=== PATIENT | female | born 1975 | race Caucasian/White ===

== ENCOUNTER → 2019-02-11 | Outpatient (CLI) | payer OTHER ==
[~2019-02-11] MED LIST: CETI10TA22 PO
[2019-02-11 13:18] LABS: BASO # 0.1 x10^3/uL (0.0-0.2); BASO % 1 % (0-3); EOS # 0.2 x10^3/uL (0.0-0.7); EOS % 3 % (0-3); HEMATOCRIT 43.9 % (36.0-47.0); HEMOGLOBIN 14.4 g/dL (12.0-15.5); LYMPH % 27 % (24-48); MEAN CORPUSCULAR HEMOGLOBIN 29 pg (25-35); MEAN CORPUSCULAR HGB CONC 33 g/dL (31-37); MEAN CORPUSCULAR VOLUME 89 fL (79-100); MONO # 0.5 x10^3/uL (0.0-1.1); MONO % 7 % (0-9); NEUT # 4.4 x10^3/uL (1.8-7.7); NEUT % 62 % (31-73); PLATELET COUNT 261 x10^3/uL (140-400); RED BLOOD COUNT 4.93 x10^6/uL (3.50-5.40); RED CELL DISTRIBUTION WIDTH 13.2 % (11.5-14.5); WHITE BLOOD COUNT 7.1 x10^3/uL (4.0-11.0)
[2019-02-11 13:19] LABS: BILIRUBIN,URINE NEGATIVE (NEG); CLARITY,URINE CLEAR; COLOR,URINE YELLOW; NITRITE,URINE NEGATIVE (NEG); PROTEIN,URINE NEGATIVE (NEG-TRACE); UROBILINOGEN,URINE 0.2 mg/dL (0.2 mg/dL)
[2019-02-11 13:23] LABS: RBC,URINE 0 /HPF (0-2); SQUAMOUS EPITHELIAL CELL,UR OCC /LPF; WBC,URINE 0 /HPF (0-4)
[2019-02-11 13:24] LABS: BACTERIA,URINE 0 /HPF (0-FEW)
[2019-02-11 13:34] LABS: ALBUMIN 4.6 g/dL (3.4-5.0); ALBUMIN/GLOBULIN RATIO 1.3 (1.0-1.7); CALCIUM 9.9 mg/dL (8.5-10.1); CREATININE 0.7 mg/dL (0.6-1.0); GFR 90.5; POTASSIUM 4.4 mmol/L (3.5-5.1); TOTAL BILIRUBIN 0.4 mg/dL (0.2-1.0); TOTAL PROTEIN 8.1 g/dL (6.4-8.2)
[2019-02-16 20:50] VITALS: BP 131/87
== END | disposition home or self-care (01) ==
LOC: SURGPAT 12:43
PROVIDERS: ATTEND Obstetrics & Gynecology
DX: Z01.818 Encounter for other preprocedural examination (principal); Z88.8 Allergy status to other drugs, medicaments and biological substances
CPT/HCPCS: 36415; 80053; 81001; 85025

== ENCOUNTER 2019-02-16 05:34 | Observation (INO) | payer OTHER ==
[~2019-02-16] VITALS: Ht 170.2 cm; Wt 116.6 kg
[2019-02-16] VITALS (13 sets, daily range): BP systolic 91–135; BP diastolic 69–97
[2019-02-16] MEDS ORDERED: BUPIVACAINE-EPI 0.25%-1:200000 MPF 30 ML VIAL. INJ ONE (06:30)
[2019-02-16] MEDS ORDERED: PROCHLORPERAZINE 10 MG/2 ML VIAL. IV PRN (07:00)
[2019-02-16] MEDS ORDERED: LIDOCAINE 1% PF 2 ML VIAL. ID PRN (07:00)
[2019-02-16] MEDS ORDERED: ONDANSETRON PF 4 MG/2 ML VIAL. IV PRN ×2 (07:00→10:00)
[2019-02-16] MEDS ORDERED: fentaNYL PF VIAL 100 MCG/2 ML VIAL IV PRN (07:00)
[2019-02-16] MEDS ORDERED: IV RINGERS,LACTATED 1000ML 1,000 ML IV SCH (07:00)
[2019-02-16] MEDS ORDERED: ESTROGENS, CONJ VAGINAL CREAM 30GM TUBE. ONE (07:06)
[2019-02-16] MEDS ORDERED: INDIGOTINDISULFONATE SODIUM 40 MG/5 ML AMPUL. ONE (07:06)
[2019-02-16] MEDS ORDERED: MIDAZOLAM HCL/PF 2 MG/2 ML VIAL. ONE (07:17)
[2019-02-16] MEDS ORDERED: fentaNYL PF VIAL 100 MCG/2 ML VIAL ONE ×2 (07:17→10:43)
[2019-02-16] MEDS ORDERED: ROCURONIUM 50 MG/5 ML VIAL. ONE (07:17)
[2019-02-16] MEDS ORDERED: SEVOFLURANE 61 TO 120 MINUTES. IH ONE (07:18)
[2019-02-16] MEDS ORDERED: LIDOCAINE 2% PF 5 ML VIAL. ONE (07:18)
[2019-02-16] MEDS ORDERED: KETOROLAC 30 MG/ML VIAL. ONE (07:18)
[2019-02-16] MEDS ORDERED: PROPOFOL 20 ML IV ONE (07:18)
[2019-02-16] MEDS ORDERED: DEXAMETHASONE SOD PHOS 4 MG/ML VIAL ONE ×2 (07:18)
[2019-02-16] MEDS ORDERED: ONDANSETRON PF 4 MG/2 ML VIAL. ONE (07:18)
[2019-02-16] MEDS ORDERED: CETIRIZINE HCL 10 MG TABLET. PO SCH (07:34)
[2019-02-16] MEDS ORDERED: ceFAZolin 2GM PREMIX 2 GM/50 ML BAG IV ONE (08:00)
[2019-02-16] MEDS ORDERED: ESMOLOL 100 MG/10 ML VIAL. IVP ONE (08:08)
[2019-02-16] MEDS ORDERED: GLYCOPYRROLATE 1 MG/5 ML VIAL. ONE (09:10)
[2019-02-16] MEDS ORDERED: NEOSTIGMINE METHYLSULFATE 5 MG/5 ML SYRINGE. ONE (09:10)
--- NOTE | 2019-02-16 09:48 | PDOC ---
BRIEF OPERATIVE NOTE Date: Feb 16, 2019 Pre-Op Diagnosis menorrhagia, suspected adenomyosis Post-Op Diagnosis same Procedure Performed LAVH/LSO/right salpingectomy/adhesiolysis (had ant wall hernia seen with scope midway between pubic bone and umbilicus) Surgeon Dr. Ivette White Concrete Finishing Machine Operator MIO Yeager Anesthesiologist Dr. Álvarez Anesthesia Type: General Blood Loss 250cc IV Fluid see anesthesia notes Urine Output 400cc clear via muller Specimens Obtained cervix, uterus, right tube, left tube and ovary Findings mildly enlarged uterus, anterior abd wall hernia with omentum stuck up inside it; normal bilateral ovaries Complications none Operative Note [id number] IVETTE WHITE MD Feb 16, 2019 09:48
[2019-02-16] MEDS ORDERED: NALOXONE 0.4 MG/ML VIAL. IV PRN (10:00)
[2019-02-16] MEDS ORDERED: MAG HYDROX/ALUMINUM HYD/SIMETH 30 ML ORAL.SUSP PO PRN (10:00)
[2019-02-16] MEDS ORDERED: diphenhydrAMINE 50 MG/ML VIAL IV PRN (10:00)
[2019-02-16] MEDS ORDERED: SIMETHICONE 80 MG TAB.CHEW PO PRN (10:00)
[2019-02-16] MEDS ORDERED: MORPHINE SULFATE 2 MG/ML VIAL. IV PRN (10:00)
[2019-02-16] MEDS ORDERED: diphenhydrAMINE HCL 25 MG CAPSULE PO PRN (10:00)
[2019-02-16] MEDS ORDERED: CALCIUM CARBONATE 500 MG TAB.CHEW PO PRN (10:00)
[2019-02-16] MEDS ORDERED: MAGNESIUM HYDROXIDE 2,400 MG/30 ML ORAL.SUSP. PO PRN (10:00)
[2019-02-16] MEDS ORDERED: LACTULOSE 20 GM/30 ML SOLUTION. PO PRN (10:00)
[2019-02-16] MEDS ORDERED: ZOLPIDEM 5 MG TABLET. PO PRN (10:00)
[2019-02-16] MEDS ORDERED: 0.9 % SODIUM CHLORIDE 10 ML DISP.SYRIN. IV PRN (10:00)
--- NOTE | 2019-02-16 10:04 | OP ---
DATE OF SURGERY: 02/16/2019 PREOPERATIVE DIAGNOSES: Menorrhagia with suspected adenomyosis and left-sided pelvic pain. POSTOPERATIVE DIAGNOSES: Menorrhagia with suspected adenomyosis and left-sided pelvic pain with anterior abdominal wall hernia with omentum in it. PROCEDURE: Laparoscopic-assisted vaginal hysterectomy, left salpingo-oophorectomy, right salpingectomy, and adhesiolysis. SURGEON: Anita White MD TELEVISION PICTURE TUBE REBUILDER: MIO Espinoza. ANESTHESIOLOGIST: Robinson Álvarez MD ANESTHESIA: General. BLOOD LOSS: 250 mL. URINE OUTPUT: 400 mL, clear via Dykes catheter. SPECIMENS: Cervix, uterus, right tube, left tube and ovary. FLUIDS: Please see anesthesia records. FINDINGS: A mildly enlarged uterus, anterior abdominal wall hernia with omentum stuck inside. Normal bilateral tubes and ovaries. COMPLICATIONS: None. DESCRIPTION OF PROCEDURE: This patient was taken to the operating room where general anesthesia was placed. The patient was placed in a dorsal lithotomy position in [facility]. The patient's abdomen and vagina were prepped and draped in the normal sterile fashion and a Dykes catheter had been inserted under sterile technique. Upon my arrival, a timeout was performed. Once everyone agreed and she had received her preoperative antibiotics, a bivalve speculum was placed in the patient's vagina. A single-tooth tenaculum was used to grasp the anterior lip of the cervix. A 10 mL of 0.25% Marcaine with epinephrine was used to circumferentially inject around the cervix for both hemodissection and hemostatic purposes later. The Valtchev uterine manipulator was placed through the endocervical os, locked on the single tooth tenaculum and the bivalve speculum was then removed. Top gloves were discarded and changed. Attention was then turned to the abdomen, where a supraumbilical skin incision was made with the scalpel. A curved Sushila was used to dissect through the subcuticular layer to the fascia. The 5 mm Visiport was used to directly into the abdominal cavity. Opening patient pressure was 5-6 mmHg. Carbon dioxide gas was used to then appropriately insufflate the abdominal cavity to maintain a pressure of 15 mmHg. Upon initial entry, direct abdominal placement was confirmed via the laparoscope. There were viewed omental adhesions, a couple of centimeters in front, which actually ended up being a little further down in front of that port. I was able to look laterally to the left and to the right and get the right and left lower quadrant ports in, transilluminating the abdominal wall, finding an area clear of any vasculature, making a small incision and putting a 5 mm blunt trocar and atraumatic trocar under direct visualization without difficulty. A 4-5 mL of air was placed in these. I then did move the camera to look at the umbilical port make sure it was clear, it was, so I used the air to insufflate this cuff as well and then the LigaSure was used to examine that and it looked like an abdominal wall hernia with omentum and the omentum was taken down, so I could see with the camera clearly. The uterus itself looked okay. There were some bladder adhesions, but that was to be expected from two sections, but other than that, the uterus, tubes, and ovaries were okay with no other significant adhesive disease and the ovaries were not enlarged, so the left side is the one the patient wished to have out. The left tube and ovary were elevated at this point with the [place]. The ureter was seen coursing low in the pelvis well out of the way, so the LigaSure was used to cauterize the infundibulopelvic ligament on the left, taking the left tube and ovary per patient request, going over to the uterus and then down and crossing the left round ligament. Once this was done, the right side was examined as well. I went under the right tube above the right ovary, keeping the right ovary per patient request doing a salpingectomy then crossing the right uteroovarian pedicle leaving again the right ovary, crossing the right round ligament and then starting the bladder flap from this side and making sure the bladder was down, taking it across and pulling it down and then elevating it and using the monopolar tip to take it down sharply as well from the uterus. Once the bladder was down, the uterine vessels were obtained on the right side and going down, cauterizing down toward the level of the uterosacral ligament. This was done exactly the same on the left side except we were already over to the uterus and through the round, I met the bladder flap anteriorly. Once the bladder was down, taking the uterine vessels and hugging the cervix and uterus and going through the cardinal and broad ligaments down to the level of the uterosacrals on this side as well. Once all of this was done, all instruments were removed from the abdomen and attention was turned vaginally. The single tooth and Valtchev were removed. Weighted speculum was placed in the vagina and curved Deavers were used to examine the cervix. A scalpel was then used to make a circumferential incision in the cervix. An open Ray-Boone 4 x 4 was used to gently push up the anterior bladder peritoneum and the anterior cul-de-sac was digitally and bluntly entered. The curved [place] was placed in here and the Ray-Boone was removed. The cervix was elevated and the posterior cul-de-sac was sharply entered with the curved Clark scissors. A #0 Vicryl stitch was used to secure the posterior peritoneum here to the vaginal cuff and it was tagged with a curved Sushila clamp and the needle was cut and passed off. The short weighted speculum was removed and replaced with the long weighted Batool speculum in the posterior cul-de-sac. Curved Mulu clamps x 2 were placed on the patient's left uterosacral ligament where they were doubly clamped with curved Mulu's, cut with curved Clark scissors and suture ligated x 2 with 0 Vicryl. Second one was taken through the vaginal cuff securing uterosacral ligament to the vaginal cuff, tagged with a straight Sushila clamp and the needle was cut and passed off. This was done exactly the same on the patient's right side, double clamping the uterosacrals with curved Mulu's, cutting with Clark scissors, suture ligating x 2 with 0 Vicryl, taking the second one through the vaginal cuff securing uterosacral ligament to the vaginal cuff, tying it and tagging it with a straight Sushila clamp and cutting and passing the needle off. The remaining pedicle on both sides was delineated with the right angle clamp and the vaginal LigaSure was used to cauterize and cut the remaining pedicle. The cervix, uterus, right tube and left tube and ovary were delivered in total and passed off for permanent pathology. Initially dunking the uterus and taking the right and left sides, there was some bleeding seen on the patient's left side; however, removing the uterus, it was gone. I cleared out all the clots and debris. I examined the left side. I even cauterized and reinforced that left uterosacral ligament, used a sponge stick to examine it and could not see anything bleeding at all, so the long weighted Batool speculum was removed and replaced with the short weighted vaginal speculum where it was examined again and again, sponge stick, we looked at all the pedicles, right and left sides and everything was dry. So at this point, a long Allis was used to grasp the anterior bladder peritoneum and 2-0 Vicryl was taken through the anterior bladder peritoneum, left uterosacral ligament, posterior peritoneum and right uterosacral ligament, thus closing the peritoneum in a pursestring like fashion. Once this was done, the right and left uterosacral tags were clipped and the cuff was closed in an anterior to posterior running locked fashion. A few imbricating stitches were placed in as well just to make sure there was no bleeding from any of the suture sites with excellent results. A sponge stick was used to examine the vaginal cuff and it was hemostatic. At this point, all instruments were removed from the vagina. All sponge, lap and needle counts were correct below x 2 by OR personnel. At this point, all gloves were discarded and changed. Attention was turned back above for a second look where copious irrigation revealed hemostasis. Right and left pericolic gutters were clear, the vaginal cuff was clear. The fluid returning was clear. The right ovary looked normal. Everything else we had been removed. Tisseel was placed over all the pedicles with excellent results and the right and left lower quadrant ports, the gas was removed from the cuff. These were removed under direct visualization and they were hemostatic. The cuff remained hemostatic. The air was taken out of the umbilical trocar as well. The gas was released from the abdomen through this trocar. Once it was out and it was removed, all 3 trocar sites were closed with 4-0 nylon at the skin and injected with local. The patient is being awakened from anesthesia and being brought to recovery room in stable condition. ANITA WHITE MD DR: KAYLAN/kassy JOB#: [id number] / [id number]
[2019-02-16] MEDS: fentaNYL PF VIAL 100 MCG/2 ML VIAL IV PRN ×2 (10:09→10:42)
--- NOTE | 2019-02-16 11:00 | NUR ---
Patient to room 303 per bed from PACU. Pt A&O x4, there are 3 lap sites on her lower abd, pt complains of abdominal cramping and she has an ice pack on abd for pain. Assessment completed and hx obtained. Ice chips given per pts request. at bedside. Pt oriented to room and call light within reach. Will cont to monitor and support.
[2019-02-16] MEDS: HYDROcodone/APAP 5/325MG 1 TAB TABLET PO PRN ×2 (12:40→17:41)
[2019-02-16 20:47] LABS: HEMATOCRIT 38.8 % (36.0-47.0); HEMOGLOBIN 13.1 g/dL (12.0-15.5); RED BLOOD COUNT 4.45 x10^6/uL (3.50-5.40); WHITE BLOOD COUNT 10.2 x10^3/uL (4.0-11.0)
--- NOTE | 2019-02-18 14:07 | PATHOLOGY ---
[facility] Accession Number: [id number] . 01 Material submitted: . uterus - CERVIX, UTERUS, LEFT TUBE AND OVARY, RIGHT SALPINGECTOMY . 01 Clinical history: . Uterine fibroids, menorrhagia . 02 Diagnosis: Uterus, left ovary and fallopian tube, and right fallopian tube, removal: - Cervix with mild chronic inflammation, squamous metaplasia, and Nabothian cysts. - Proliferative phase endometrium. - Myometrium with single leiomyoma, 1.0 cm; adenomyosis. - Serosal surface with no pathologic diagnosis. - Left ovary and fallopian tube with no pathologic diagnosis. - Right fallopian tube with no pathologic diagnosis. (SKM:elaine; 02/18/2019) S 02/18/2019 1040 Local . 02 Electronically signed: . Juan Alberto Lincoln MD, Pathologist NPI- [id number] . 01 Gross description: . The specimen is received in formalin labeled "Eileen Garcia, cervix, uterus, left tube and ovary, right salpingectomy". Received is a 65 g, 8.2 x 5.3 x 3.6 cm uterus with attached cervix, attached left adnexa weighing 8 g, and attached right fallopian tube weighing 3 g. The uterine serosa is pink-wiseman to pink-marie and smooth in appearance. The 0.8 cm cervical os is surrounded by pale wiseman, smooth ectocervical mucosa. The uterus is oriented using the peritoneal reflection and the anterior paracervical margin is inked black. The uterus is opened laterally to reveal a pale wiseman, corrugated endocervical canal measuring 2.6 cm in length. The endometrial cavity is triangular measuring 3.9 cm in length by 2.2 cm in width. The endometrium is pale wiseman to pink-wiseman, glistening in appearance and measures 0.1 cm in thickness. Serial sectioning reveals a wiseman-pink, trabeculated myometrium measuring up to 1.8 cm in thickness displaying a single intramural fibroid measuring 1.0 cm, as well as a slight amount of adenomyosis. . The left adnexa consists of a fimbriated fallopian tube measuring 3.5 cm in length by up to 0.6 cm in diameter attached to a 2.6 x 2.3 x 1.5 cm ovary. Sectioning through the fallopian tube reveals a patent lumen and the fallopian tube appears grossly unremarkable. Sectioning through the ovary reveals a unilocular cystic structure measuring 0.8 cm filled with clear fluid. The remaining cut surfaces display pale wiseman, normal ovarian stroma. . The right fimbriated fallopian tube measures 3.2 cm in length by 0.6 cm in diameter. Sectioning reveals a patent lumen. The specimen is submitted representatively as follows: . A1 12:00 cervix A2 6:00 cervix A3 anterior endomyometrium A4 posterior endomyometrium A5 intramural fibroid A6 left adnexa A7 right fallopian tube. (CAA; 02/17/2019) QAC/QAC 02/18/2019 1037 Local . 02 Pathologist provided ICD-10: D25.9, N72, N88.8, N80.0 . 02 CPT . 997231 Specimen Comment: A courtesy copy of this report has been sent to Specimen Comment: [phone], . Specimen Comment: Report sent to / DR PETER Performed at: 01 [facility] [address], [place], [place] [id number] MD Prakash Medina MD Phone: [phone] Performed at: 02 [facility] [address], [place] [id number] MD Jigar Loo MD Phone: [phone]
== END 2019-02-16 21:06 | disposition home or self-care (01) ==
LOC: SURG 05:34 → EDUNIT# 07:30 → 3 NORTH 10:02
PROVIDERS: ADMIT Obstetrics & Gynecology; ATTEND Obstetrics & Gynecology
DX: D25.1 Intramural leiomyoma of uterus (principal); N80.9 Endometriosis, unspecified; N92.0 Excessive and frequent menstruation with regular cycle; N92.6 Irregular menstruation, unspecified; K43.9 Ventral hernia without obstruction or gangrene; K66.0 Peritoneal adhesions (postprocedural) (postinfection); N85.2 Hypertrophy of uterus
CPT/HCPCS: 36415; 58552; 81025; 85027; 86850; 86900; 86901; 88307; A7015; G0378; G0379; J0696; J1100; J1885; J2001; J2250; J2704; J2710; J3010; J3490; J7030; J7120; 86920; J2405